=== PATIENT | male | born 1985 ===

== ENCOUNTER 2017-12-01 14:26 | Inpatient (IN) | payer MEDICAID ==
[2017-12-01 15:12] LABS: URINE AMORPHOUS SEDIMENT RARE /ul (<OCC); URINE BACTERIA RARE (<OCC); URINE BILIRUBIN NEGATIVE (NEGATIVE); URINE BLOOD NEGATIVE (NEGATIVE); URINE CLARITY Hazy (Clear); URINE COLOR Yellow (YELLOW); URINE GLUCOSE (UA) NORMAL (Normal); URINE LEUKOCYTE ESTERASE NEG Leu/uL (Negative); URINE PROTEIN NEGATIVE (NEGATIVE); URINE UROBILINOGEN NORMAL mg/dL (0.2-1.0)
[2017-12-01 15:14] LABS: BASO % 0.4 % (0.0-2.0); EOS # 0.2 K/uL (0.0-0.7); EOS % 2.5 % (0.0-4.0); HEMOGLOBIN 13.5 g/dL (12.0-18.0); LYMPH # 1.2 K/uL (1.0-4.3); LYMPH % 11.7 % (20.0-40.0); MEAN CELL VOLUME 92.1 fL (80.0-94.0); MEAN CORPUSCULAR HEMOGLOBIN 31.1 pg (27.0-31.0); MEAN CORPUSCULAR HGB CONC 33.7 g/dL (33.0-37.0); MEAN PLATELET VOLUME 7.7 fL (7.2-11.7); MONO # 0.3 K/uL (0.0-0.8); NEUT # 8.2 K/uL (1.8-7.0); NEUT % 82.4 % (50.0-75.0); RBC 4.35 Mil/uL (4.40-5.90); RED CELL DISTRIBUTION WIDTH 13.1 % (11.5-14.5)
[2017-12-01 15:18] LABS: ALBUMIN 4.6 g/dL (3.5-5.0); BLOOD UREA NITROGEN 11 mg/dL (9-20); CALCIUM 9.6 mg/dl (8.6-10.4); GFR AFRICAN-AMERICAN > 60; GFR NON-AFRICAN AMERICAN > 60
[2017-12-01 15:19] LABS: ALB/GLOB RATIO 1.5 (1.0-2.1); ALT/SGPT 27 U/L (21-72); AST/SGOT 27 U/L (17-59)
[2017-12-01 15:33] LABS: BARBITURATES, UR NEGATIVE (NEGATIVE); PHENCYCLIDINE, UR NEGATIVE (NEGATIVE)
[2017-12-01 15:36] LABS: BENZODIAZEPINES, UR POSITIVE (NEGATIVE); OPIATES, UR POSITIVE (NEGATIVE)
--- NOTE | 2017-12-01 16:23 | C.PDOC ---
History Of Present Illness 32 y/o male presents to ED requesting detox from Heroin, cocaine and benzo, reports last used yesterday. Patient admits to sniffing 10 bags of Heroin daily and currently denies any physical complaints at this time. Chief Complaint (Nursing): Substance Abuse History Per: Patient History/Exam Limitations: no limitations Onset/Duration Of Symptoms: Days Current Symptoms Are (Timing): Still Present Suicide/Self Injury Attempted (Context): None Modifying Factor(s): Cocaine Past Medical History Reviewed: Historical Data, Nursing Documentation, Vital Signs Vital Signs: Last Vital Signs Temp 98.4 F 12/01/17 19:15 Pulse 71 12/01/17 19:15 Resp 18 12/01/17 19:15 BP 122/83 12/01/17 19:15 Pulse Ox 100 12/01/17 19:15 - Medical History PMH: Anxiety, Bipolar Disorder, Depression Surgical History: Appendectomy, Back Surgery Family History: States: No Known Family Hx - Social History Hx Alcohol Use: No Hx Substance Use: Yes - Immunization History Hx Tetanus Toxoid Vaccination: Yes Hx Influenza Vaccination: No Hx Pneumococcal Vaccination: No Review Of Systems Constitutional: Negative for: Fever, Chills Cardiovascular: Negative for: Chest Pain Respiratory: Negative for: Shortness of Breath Gastrointestinal: Negative for: Nausea, Vomiting Skin: Negative for: Rash Neurological: Negative for: Weakness, Numbness Psych: Negative for: Suicidal ideation, Withdrawal Physical Exam - Physical Exam Appears: Non-toxic, No Acute Distress Skin: Warm, Dry, No Rash Head: Atraumatic, Normacephalic Eye(s): bilateral: Normal Inspection Oral Mucosa: Moist Neck: Normal ROM, Supple Cardiovascular: Rhythm Regular Respiratory: Normal Breath Sounds, No Rales, No Rhonchi, No Wheezing Gastrointestinal/Abdominal: Soft, No Tenderness, No Guarding, No Rebound Neurological/Psych: Oriented x3, Normal Speech ED Course And Treatment - Laboratory Results Result Diagrams: 12/01/17 15:01 12/01/17 15:01 O2 Sat by Pulse Oximetry: 100 (RA) Pulse Ox Interpretation: Normal Medical Decision Making Medical Decision Making: Patient medically cleared for detox admission Disposition - Disposition Disposition Time: 15:40 Condition: STABLE - Clinical Impression Clinical Impression: Drug abuse, Drug dependence - Scribe Statement The provider has reviewed the documentation as recorded by the Brandiibe Maricsa Medina All medical record entries made by the Scribe were at my direction and personally dictated by me. I have reviewed the chart and agree that the record accurately reflects my personal performance of the history, physical exam, medical decision making, and the department course for this patient. I have also personally directed, reviewed, and agree with the discharge instructions and disposition.
--- NOTE | 2017-12-01 16:42 | PCM.BM ---
<Thomas Owens - Last Filed: 12/01/17 16:39> Treatment Plan Problems - Problems identified on initial assessmt Potential for opiate withdrawal Date Initiated: 12/01/17 Time Initiated: 16:40 Assessment reference: NA Status: Active Treatment assets and liabiliti Patient Assests: ADL independent, physically healthy, good support system, cognitively intact Patient Liabilities: substance abuse, other (Homeless) - Milieu Protocol Maintain good personal hygiene: daily Encourage regular showers, daily Remind patient to perform daily oral care, daily Assist patient to perform ADL's Maintain personal safety: every shift Educate patient to report safety concerns to staff, every shift Monitor environment for contraband/sharps Medication safety: Monitor for expected outcome, potential side effects: every shift, Assess barriers to learning: every shift, Assess readiness for medication education: every shift <David Arias - Last Filed: 12/05/17 07:47> - Diagnosis (1) Opioid use disorder, severe, dependence Status: Acute Interventions: 12/05/17 07:47 * Assess 7x/week regarding severity of withdrawal * Educate regarding risks, benefits, side effects and alternatives of medications * Use Motivational Interviewing for abstinence * Use CBT for relapse prevention * Medication management for withdrawal symptoms * Encourage medication assisted treatment *
--- NOTE | 2017-12-02 10:31 | PCM.PSYCH ---
Initial Psychiatric Evaluation - Initial Psychiatric Evaluation Type of Admission: Voluntary Legal Status: Capacity Chief Complaint (in patient's own words): "I want to stay clean" History of Present Illness and Precipitating Events: This is a 32 year old single , homeless, unemployed male admitted for heroin detox. However, Pt's mother would gladly accept pt into her home once pt becomes and maintains sobriety. Pt states he uses 10 bags of heroin daily for the last 8 years. Pt had multiple rehabs in the past. Pt reports last he used 5 bags intranasally yesterday at 10am. Pt is currently experiencing the following withdrawal symptoms: headache, nausea, leg pain, cold sweats and restlessness. Pt last was at [facility] 1 year ago and went to [facility] for rehab and was not sober any days after. Pt reports his environment is a risk for relapse and that it causes him to do so. Pt appears withdrawn but states he is not feeling well. Pt does not states having any disturbance in sleep or appetite. Pt is motivated and eager in going to detox today. Pt denies hx of psychiatric admission but reports having been dx with bipolar disorder and anxiety 5 years ago while on the detox unit at [facility]. Pt was prescribed seroquel 200mg po hs and has been compliant with medication since. He is using 2 mg of Xanax 3 times a day, for last 2 years. He reproted withdrawal symptoms. He uses Cocaine everyother day. He uses 8-10 bags /day via sniffing. PPHx: denied PMH: denied Legal History: denied Social Hx: he has 11 yo daughter who resides with her mother. he is homeless, unemployed Current Medications: Active Medications Generic Name Dose Route Start Last Admin Trade Name Freq PRN Reason Stop Dose Admin Chlordiazepoxide 25 mg 12/02/17 12:00 Librium PO 12/06/17 11:59 Q6H CHRIS Taper Clonidine HCl 0.1 mg 12/01/17 17:24 Catapres PO Q8 PRN COWS Score More or Equal to 5 Hydroxyzine HCl 25 mg 12/01/17 17:27 Atarax PO Q6H PRN Anxiety Ibuprofen 600 mg 12/01/17 17:26 12/01/17 21:14 Motrin Tab PO 600 mg TID PRN Administration Pain, moderate (4-7) Loperamide HCl 2 mg 12/01/17 17:24 Imodium PO Q8 PRN Diarrhea Methadone HCl 20 mg 12/02/17 10:45 Methadone PO 12/06/17 10:44 DAILY CHRIS Taper Ondansetron HCl 4 mg 12/01/17 17:24 Zofran Tab PO Q8 PRN Nausea/Vomiting Trazodone HCl 50 mg 12/01/17 21:15 12/01/17 21:22 Desyrel PO 50 mg HS PRN Administration Insomnia Past Psychiatric History - Past Psychiatric History Previous Treatment History: Inpatient Prior Psychiatric Treatment: opioid detox Nature of Treatment: detox treatment Explanation of prior treatment: [facility], [facility] house, [facility] History of Abuse: denied History of ETOH/Drug Use: please see HPI History of Family Illness: denied Pertinent Medical Hx (Current Medical&Sleep Prob, Allergies): Allergies Allergy/AdvReac Type Severity Reaction Status Date / Time No Known Allergies Allergy Unverified 12/01/17 14:37 Quetiapine Fumarate [Seroquel] 200 mg PO DAILY 12/01/17 Review of Systems - Review of Systems All systems: reviewed and no additional remarkable complaints except (please see HPI) Mental Status Examination - Personal Presentation Personal Presentation: Looks younger than stated age, Dressed appropriate to season Additional comments: I/J limited/ limited - Affect Affect: Constricted - Motor Activity Motor Activity: Calm - Reliability in Providing Information Reliability in Providing Information: Good - Speech Speech: Organized - Mood Mood: Depressed - Formal Thought Process Formal Thought Process: No Impairment - Hallucinations/Delusions Hallucinations: Other (deneid) Delusions: Other (denied) - Obsessions/Compulsions Obsessions: None Compulsions: None - Cognitive Functions Orientation: Person, Place, Situation, Time Sensorium: Alert Attention/Concentration: Attentive Abstract Thinking: [place] Estimate of Intelligence: Average Judgement: Intact, as evidence by: Good judgement Memory: Recent intact, as evidence by: Ability to recall events of the day - Risk Risk: Withdrawal - Strength & Assets Inventory Strength & Assets Inventory: Intelligence, Family support, Skills, Cooperative - Limitations Limitations: Other (chronic substance abuse) DSM 5 DX - DSM 5 DSM 5 Diagnosis: Opioid use disorder, severe, dependence, Opioid withdrawal hypnotic/ sedative use disorder, cocaine use disorder - Recommended/Plan of Treatment Treatment Recommendations and Plan of Treatment: Methadone detox Librium detox As needed meds and vitamins Attend groups and activities [place] for abstinence and CBT for relapse prevention Support and psychoeducation Consider and encourage MAT Refer to after care 33 min Projected ELOS: 5 days Prognosis: good Discharge Plan and Discharge Criteria: please see after care plan - Smoking Cessation Smoking Cessation Initiated: Yes
--- NOTE | 2017-12-03 09:19 | RAD ---
HISTORY: rehab placement COMPARISON: No prior. TECHNIQUE: Chest PA and lateral FINDINGS: LUNGS: No active pulmonary disease. PLEURA: No significant pleural effusion identified. No pneumothorax apparent. CARDIOVASCULAR: Normal. OSSEOUS STRUCTURES: No significant abnormalities. VISUALIZED UPPER ABDOMEN: Normal. OTHER FINDINGS: None. IMPRESSION: No active disease.
[2017-12-03] MEDS: METHADONE 15 MG PO SCH (09:26)
--- NOTE | 2017-12-03 10:04 | PCM.PYCHPN ---
Psychiatric Progress Note - Psychiatric Progress Note Patient seen today, length of contact: 15 minutes Patient Chief Complaint: "I have anxiety" Problems Identified/Issues Discussed: The pt is seen, chart reviewed, case discussed with staff. Pt stated he is feeling Fine. Support given, CBT and [place] used briefly No new symptoms reported, improving slowly and needs more time No SEs from medications, risks discussed. After care discussed. DSM 5 Symptoms Update: Opioid use disorder, severe, dependence Opioid withdrawal Medication Change: Yes (taper daily) Medical Record Reviewed: Yes Mental Status Examination - Cognitive Function Orientation: Person, Place, Situation, Time Memory: Intact Attention: WNL Concentration: WNL Association: [facility] Fund of Knowledge: [facility] Decription of patient's judgement and insights: improving/fair - Mood Mood: Depressed - Affect Affect: Constricted - Speech Speech: Appropriate - Formal Thought Process Formal Thought Process: No Impairment Psychotic Thoughts and Behaviors: denied - Suicidal Ideation Suicidal Ideation: No Plan: denied - Homicidal Ideation Homicidal Ideation: No Plan: denied Goal/Treatment Plan - Goal/Treatment Plan Need for Continued Stay: Discharge may exacerbated symptoms Progress Toward Problem(s) and Goals/Treatment Plan: Methadone detox Librium detox As needed meds and vitamins Attend groups and activities [place] for abstinence and CBT for relapse prevention Support and psychoeducation Consider and encourage MAT Refer to after care Estimated Date of D/C: 12/05/17 - Smoking Cessation Smoking Cessation Initiated: Yes
[2017-12-04] MEDS: METHADONE 15 MG PO SCH (09:25)
--- NOTE | 2017-12-04 13:41 | PCM.PYCHPN ---
Psychiatric Progress Note - Psychiatric Progress Note Patient seen today, length of contact: 15 minutes Patient Chief Complaint: "Not well" Problems Identified/Issues Discussed: The pt is seen, chart reviewed, case discussed with staff. The pt is compliant with medications and reports no side-effects. Symptoms are improving but needs more time to stabilize. After care discussed, support and psychoeducation given. Medication Change: Yes (taper daily) Medical Record Reviewed: Yes Mental Status Examination - Cognitive Function Orientation: Person, Place, Situation, Time Memory: Intact Attention: WNL Concentration: WNL Association: WNL Fund of Knowledge: WNL - Mood Mood: Depressed, Anxious - Affect Affect: Constricted - Speech Speech: Appropriate - Formal Thought Process Formal Thought Process: No Impairment - Suicidal Ideation Suicidal Ideation: No - Homicidal Ideation Homicidal Ideation: No Goal/Treatment Plan - Goal/Treatment Plan Need for Continued Stay: Discharge may exacerbated symptoms, Severe functional impairment Progress Toward Problem(s) and Goals/Treatment Plan: Continue detox As needed medications Gabapentin for augmentation if needed All risks, benefits and alternatives of medications, including no medications, discussed and the patient understood and agreed. Attend groups and activities Supportive therapy and psychoeducation [place] for abstinence CBT for relapse prevention Encourage MAT Refer to rehab or IOP Attend self-help groups as well [place] for smoking cessation and patch if needed Estimated Date of D/C: 12/07/17
[2017-12-04 16:35] VITALS: RESP 18
[2017-12-05] MEDS: METHADONE 15 MG PO SCH (09:24)
--- NOTE | 2017-12-05 17:57 | PCM.PYCHPN ---
Psychiatric Progress Note - Psychiatric Progress Note Patient seen today, length of contact: 15 minutes Patient Chief Complaint: I'm feeling little better. Problems Identified/Issues Discussed: Patient seen, chart reviewed, case discussed with the staff. Issues related to illness and treatment were discussed with the patient and staff. Reported compliant with treatment with no adverse affects. Tolerating treatment very well. Calm and cooperative. Reported feeling better. Status time of evaluation, patient was awake alert oriented 3, had no delusions , no auditory or visual hallucinations, no suicidal ideations or homicidal ideations. Medical Problems: None reported Diagnostic Results: Reviewed DSM 5 Symptoms Update: Some improvement with treatment Medication Change: No Medical Record Reviewed: Yes Mental Status Examination - Cognitive Function Orientation: Person, Place, Situation, Time Memory: Intact Attention: WNL Concentration: WNL Association: WN Fund of Knowledge: [facility] Decription of patient's judgement and insights: Fair - Mood Mood: Anxious (Less than before) - Affect Affect: Other (Appropriate) - Speech Speech: Appropriate - Formal Thought Process Formal Thought Process: No Impairment Psychotic Thoughts and Behaviors: None - Suicidal Ideation Suicidal Ideation: No - Homicidal Ideation Homicidal Ideation: No Goal/Treatment Plan - Goal/Treatment Plan Need for Continued Stay: Remain at risks for inpatient hospitalization, Discharge may exacerbated symptoms, Severe functional impairment Progress Toward Problem(s) and Goals/Treatment Plan: Patient education. Supportive therapy. CBT for relapse prevention. [place] for abstinence. Continue treatment as before. Estimated Date of D/C: 12/07/17 - Smoking Cessation Smoking Cessation Initiated: Yes
[2017-12-05 18:32] VITALS: O2SAT 100
--- NOTE | 2017-12-06 10:26 | PCM.PYCHPN ---
Psychiatric Progress Note - Psychiatric Progress Note Patient seen today, length of contact: 15 minutes Patient Chief Complaint: "I have anxiety" Problems Identified/Issues Discussed: The pt is seen, chart reviewed, case discussed with staff. Pt stated he is feeling Fine. Support given, CBT and [place] used briefly No new symptoms reported, improving slowly and needs more time No SEs from medications, risks discussed. After care discussed. Medical Problems: Pt was seen and evaluated. He reported he is feeling anxious and still has anxiety symptoms. He is improving but needs more time to stabilized Medication Change: No Medical Record Reviewed: Yes Mental Status Examination - Cognitive Function Orientation: Person, Place, Situation, Time Memory: Intact Attention: WNL Concentration: WNL Association: WNL Fund of Knowledge: WNL - Mood Mood: Anxious (Less than before) - Affect Affect: Other (Appropriate) - Speech Speech: Appropriate - Formal Thought Process Formal Thought Process: No Impairment - Suicidal Ideation Suicidal Ideation: No - Homicidal Ideation Homicidal Ideation: No Goal/Treatment Plan - Goal/Treatment Plan Need for Continued Stay: Remain at risks for inpatient hospitalization, Discharge may exacerbated symptoms, Severe functional impairment Progress Toward Problem(s) and Goals/Treatment Plan: Methadone detox Librium detox As needed meds and vitamins Attend groups and activities [place] for abstinence and CBT for relapse prevention Support and psychoeducation Consider and encourage MAT Refer to after care Estimated Date of D/C: 12/07/17
[2017-12-07 08:45] VITALS: BP 124/84; PULSE 91; TEMP 98.2
--- NOTE | 2017-12-07 14:25 | PCM.PYCHDC ---
Mental Status Examination - Mental Status Examination Orientation: Person, Place, Situation, Time Memory: Intact Mood: Neutral Affect: Other (Appropriate) Speech: Appropriate Attention: WNL Concentration: WNL Association: WNL Fund of Knowledge: WNL Formal Thought Process: No Impairment Description of patient's judgement and insight: Fair Psychotic Thoughts and Behaviors: None Suicidal Ideation: No Current Homicidal Ideation?: No Discharge Summary - Discharge Note Reason for Hospitalization: Opiate use disorder severe. Anxiolytics use disorder severe. Cocaine use disorder Psychiatric History (includes Medical, Family, Personal Hx): detox treatment Laboratory Data: Reviewed Consultations:: List each consultation separately and include: 1. Reason for request. 2. Findings. 3. Follow-up Summary of Hospital Course include:: 1. Description of specific treatment plan utilized for patients during their course of treatmen. 2. Summarize the time- course for resolution of acute symptoms and/or regressed behaviors. 3. Describe issues identified and worked on during hospitalization. 4. Describe medication utilized. 5. Describe medical problems identified and treated. 6. Reassessment of suicide risk Summary of Hospital Course: This is a 32 year old single , homeless, unemployed male admitted for heroin detox. However, Pt's mother would gladly accept pt into her home once pt becomes and maintains sobriety. Pt states he uses 10 bags of heroin daily for the last 8 years. Pt had multiple rehabs in the past. Pt reports last he used 5 bags intranasally yesterday at 10am. Pt is currently experiencing the following withdrawal symptoms: headache, nausea, leg pain, cold sweats and restlessness. Pt last was at [facility] 1 year ago and went to [facility] for rehab and was not sober any days after. Pt reports his environment is a risk for relapse and that it causes him to do so. Pt appears withdrawn but states he is not feeling well. Pt does not states having any disturbance in sleep or appetite. Pt is motivated and eager in going to detox today. Pt denies hx of psychiatric admission but reports having been dx with bipolar disorder and anxiety 5 years ago while on the detox unit at [facility]. Pt was prescribed seroquel 200mg po hs and has been compliant with medication since. He is using 2 mg of Xanax 3 times a day, for last 2 years. He reproted withdrawal symptoms. He uses Cocaine everyother day. He uses 8-10 bags /day via sniffing. During his stay in the hospital patient was treated with methadone, gabapentin and other when necessary medications. Patient was attending groups. Reported above treatment patient started feeling better. Today patient was much better and was ready for discharge from the hospital. At the time of evaluation and discharge, patient was awake alert oriented 3, had no delusions, no auditory or visual hallucinations, no suicidal ideations or homicidal ideations. Patient was discharged in a stable condition. Patient will go to [facility] for follow-up care after discharge from the hospital. - Final Diagnosis (DSM 5) Condition upon Discharge: STABLE Disposition: HOME/ ROUTINE Follow-up Treatment Plan: Patient will go to [facility] for follow-up care after discharge from the hospital. - Smoking Cessation Smoking Cessation Medication prescribed: Yes - Antipsychotic Medications Pt discharged on 2 or more routine antipsychotic medications: No
== END 2017-12-07 09:30 | disposition home or self-care (01) | DRG 745 ==
LOC: C.ER 14:26 → C.7D 15:51
PROVIDERS: ADMIT Psychiatry & Neurology Psychiatry; ATTEND Psychiatry & Neurology Psychiatry
PROC: HZ2ZZZZ Detoxification Services for Substance Abuse Treatment (ICD-10-PCS; principal; 2017-12-01)
DX: F11.23 Opioid dependence with withdrawal (principal); F14.10 Cocaine abuse, uncomplicated; F41.9 Anxiety disorder, unspecified; Z59.0 Homelessness; F31.9 Bipolar disorder, unspecified; F19.10 Other psychoactive substance abuse, uncomplicated